=== PATIENT | female | born 1940 | race Caucasian/White ===

== ENCOUNTER 2016-07-07 09:55 | Inpatient (IN) | payer OTHER ==
[~2016-07-07] VITALS: Ht 170.2 cm; Wt 90.3 kg
--- NOTE | ~2016-07-07 | EKG ---
[place] [address] [facility] [employer] [place] [address] ELECTROCARDIOGRAM REPORT Name: SAAD RIVERA Room #: 460-P ADM IN M.R.#: [id number] Admission: 07/07/16 Attend Phys: Bennie Baca Discharge: Date of : 36 Report #: [id number] THIS REPORT FOR: //name// [facility] ED Test Date: 2016-07-07 Test Time: 10:04:00 Pat Name: SAAD RIVERA Department: Room: [facility] Gender: F Central Office Installer: LUCAS : 1940 Requested By: Libia Freeman Order Number: [id number] MD: Tony Melendez Measurements Intervals Rice Rate: 105 P: AK: QRS: 21 QRSD: 89 T: 77 QT: 365 QTc: 483 Interpretive Statements Atrial fibrillation Nonspecific ST and T-wave abnormality Borderline prolonged QT interval Compared to ECG 08/13/2013 16:40:52 Premature ventricular complexes are no longer present Electronically Signed On 07-08-2016 7:56:31 CDT by Tony Melendez [email or web address] <ELECTRONICALLY SIGNED> By: Tony Melendez MD, [facility] 07/08/16 0756 [id number] Tony Melendez MD, [facility] /EPI
--- NOTE | ~2016-07-07 | HC ---
[facility] [place] [address] CONSULTATION Name: SAAD RIVERA Room #: 460-P ADM IN M.R.#: [id number] Admission: 07/07/16 Attend Phys: Bennie Baca Discharge: Date of : 36 Report #: [id number] THIS REPORT FOR: //name// CC: Epifanio Montes MD [facility] Bennie Bishop MD DATE OF SERVICE: 07/07/2016 REFERRING PROVIDER: Bennie Baca M.D. REASON FOR CONSULTATION: Shortness of breath and wheezing. HISTORY OF PRESENT ILLNESS: Our group was asked to evaluate the patient in consultation while hospitalized at [facility]. A very pleasant 76-year-old woman without any significant past pulmonary history; although, may have a history symptomatically of mild asthma or allergic rhinitis. She had been in her usual state of health until the last several days where she had some increasing upper respiratory congestion, rhinorrhea and sneezing. Then over the last 2 days had increasing shortness of breath, cough, yellow sputum production and wheezing. No fevers, chills or sweats. Dyspnea became worse today, presented to the Emergency Department for further evaluation. The patient was noted to have significant labored breathing and mixed respiratory and metabolic acidosis, was started on BiPAP and subsequently also given systemic steroids, bronchodilators, antibiotics and transferred to critical care telemetry floor. Currently, she is having difficulty speaking in full symptoms off BiPAP. Audible wheezes are noted across the room. She notes some chest tightness but no other chest discomfort. She does have a history of atrial fibrillation, but notes no palpitations or increased lower extremity edema. She remains fully anticoagulated, on Pradaxa for her history of atrial fibrillation. In the Emergency Department, a D-dimer was normal. A CT scan of the chest was also performed which showed some minimal strand-like infiltrates in the bases, which may be consistent with either atelectasis or subtle infiltrates. The patient has no fever, chills or sweats. She notes no ill contacts at home. No recent travel. ALLERGIES: Include SULFA and CIPROFLOXACIN. PAST MEDICAL HISTORY: 1. History of paroxysmal atrial fibrillation. 2. Hypertension. 3. Hyperlipidemia. [address] [address] CONSULTATION Name: SAAD RIVERA Room #: 460-P [facility] IN ..#: [id number] Admission: 07/07/16 Attend Phys: Bennie Baca Discharge: Date of : 36 Report #: [id number] OUTPATIENT MEDICATIONS: Include: 1. Pradaxa. 2. Atenolol. 3. Diltiazem. 4. Simvastatin. 5. Lumigan eyedrops. 6. Zyrtec. SOCIAL HISTORY: The patient is a never smoker, no alcohol consumption. Lives with her independently. FAMILY HISTORY: Negative for any significant pulmonary disease. REVIEW OF SYSTEMS: CONSTITUTIONAL: Denies any fevers, chills or sweats. No change in weight or appetite or vomiting. EARS, NOSE AND THROAT: Has had some upper respiratory congestion with some clear rhinorrhea and postnasal drip symptoms. No dysphagia. CARDIOVASCULAR: Known history of atrial fibrillation. No chest pains or palpitations. GASTROINTESTINAL: No abdominal pain, nausea, vomiting, diarrhea or constipation. GENITOURINARY: No dysuria, urinary frequency or hematuria. INTEGUMENT: Denies any new rash. MUSCULOSKELETAL: Denies any significant lower extremity edema or joint pains. Rest of 10-point review of systems is negative. PHYSICAL EXAMINATION: VITAL SIGNS: Afebrile, pulse 100-110, respiratory rate 28 and blood pressure 130/77. GENERAL: This is an obese, elderly woman in moderate respiratory distress, having difficulty speaking in full sentences. HEENT: Revealed a clear oropharynx, no dental caries. Mallampati 2 airway, no thrush. NECK: Supple, no lymphadenopathy and no stridor. LUNGS: Diffuse expiratory wheezes noted throughout with diminished airflow. CARDIOVASCULAR: Heart was regular but tachycardic. No murmurs noted. ABDOMEN: Soft, flat and nontender, no masses and no hepatosplenomegaly. EXTREMITIES: Only trace edema. They are warm with 2+ pulses. LABORATORY DATA: Arterial blood gas done on BiPAP 01/18, FiO2 of 35% revealed a pH of 7.35, pCO2 of 42, pO2 of 72, bicarbonate of 23, lactate was 1.6. White blood cell count 18,000, hemoglobin 13, hematocrit 40, platelet count 220, 95% segmented neutrophils. Chemistry profile within normal limits except for an elevated creatinine of 1.4 and glucose of 169. Initial lactate was 3.3 on serum chemistry; however, was normal on arterial blood gas. Troponin is normal. [facility] [address] [place] [address] CONSULTATION Name: SAAD RIVERA Room #: 460-P [facility] IN M.R.#: [id number] Admission: 07/07/16 Attend Phys: Bennie Baca Discharge: Date of : 36 Report #: [id number] ProBNP 1632. Imaging as described in HPI. IMPRESSION: 1. Acute hypercapnic and hypoxemic respiratory failure most consistent with early pneumonia with also history of recent sinus disease, cannot rule out some underlying mild asthma that has been exacerbated as the patient states she has been off and on inhaled bronchodilators in the past; although, does not chronically use. 2. History of atrial fibrillation. 3. Pulmonary infiltrates consistent with community-acquired pneumonia. Favor continuing with Rocephin and azithromycin and following radiographs. SUGGESTIONS: 1. Antibiotics as described above. 2. Systemic steroids with taper. 3. Noninvasive positive pressure ventilation with BiPAP and follow closely. 4. Continuous oximetry monitoring. 5. Follow up radiograph in the a.m. as well as arterial blood gas. 6. Frequent bronchodilators, DuoNeb q. 4 hours. 7. Await cultures of sputum and blood. 8. Nasal swab for respiratory viral panel. 9. Urinary pneumococcal and legionella antigen tests. 10. Additional recommendations to follow. Thank you for requesting our suggestions. We will continue to follow. By: [id number] [id number] Bruce Briggs MD /nt
[2016-07-07 09:55] VITALS: BP 149/122
[~2016-07-07 09:55] MED LIST: ALEVE220 MG PO; ATENOLOL 25 MG25 M1 PO; BAYER CHEWABLE81 MG PO; CARDIZEM CD180 MG PO; LUMIGAN2.5 M1 OP; PRADAXA150 MG PO; ZOCOR20 MG PO; ZYRTEC10 MG PO
[2016-07-07] MEDS ORDERED: PRADAXA150 MG PO (09:58)
[2016-07-07 10:20] LABS: HEMATOCRIT 40.3 % (37.0-47.0); HEMOGLOBIN 13.4 gm/dL (12.0-15.0); MCH 30.1 pg (26.0-34.0); MCHC 33.2 g/dL (28.0-37.0); MCV 90.7 fL (80.0-100.0); PLATELET COUNT 220 thou/uL (150-400); RBC 4.44 mil/uL (4.20-5.00); RDW 13.8 % (10.5-14.5); WBC 18.2 thou/uL (4.0-11.0)
[2016-07-07 10:24] LABS: ANION GAP 11 mmol/L (7-16); BUN 22 mg/dL (7-18); CALCIUM 9.4 mg/dL (8.5-10.1); CHLORIDE 106 mmol/L (98-107); CO2 22 mmol/L (21-32); CREATININE 1.4 mg/dL (0.6-1.0); GLUCOSE 169 mg/dL (74-106); POTASSIUM 4.2 mmol/L (3.5-5.1); SODIUM 139 mmol/L (136-145)
[2016-07-07 10:25] LABS: MANUAL DIFF YES
[2016-07-07 10:36] LABS: NT-PRO BRAIN NAT PEPTIDE 1632 pg/mL (<300); TROPONIN-I < 0.04 ng/mL (<0.04-0.07)
[2016-07-07 10:55] LABS: ABSOLUTE NEUTROPHILS 17.3 thou/uL (1.4-8.2); ANISOCYTOSIS SLIGHT; TOTAL CELL COUNT 100
[2016-07-07 11:35] LABS: ABG SAMPLE TYPE ARTERIAL; BE(vivo) -6.2 mmol/L (-2 to +3); HCO3 20.5 mmol/L (22.0-26.0); LACTATE 1.86 mmol/L (0.5-2.0); O2(CT) 17.8 mL/dL (15.0-23.0); O2Hb 90.4 % (92.0-98.0); PCO2 45.2 mmHg (35.0-45.0); PO2 66.9 mmHg (80.0-100.0); STICK SITE L.RADIAL; pH 7.275 (7.360-7.450); sO2 90.8 % (92.0-98.0); tCO2 21.9 mmol/L (24.0-30.0)
[2016-07-07 12:33] LABS: ABG SAMPLE TYPE ARTERIAL; BE(vivo) -2.9 mmol/L (-2 to +3); HCO3 22.6 mmol/L (22.0-26.0); LACTATE 1.58 mmol/L (0.5-2.0); O2Hb 92.9 % (92.0-98.0); PCO2 42.1 mmHg (35.0-45.0); PO2 71.7 mmHg (80.0-100.0); Pressure Support 12 cm H20; STICK SITE L.RADIAL; pH 7.348 (7.360-7.450); sO2 93.7 % (92.0-98.0); tCO2 23.9 mmol/L (24.0-30.0)
[2016-07-07 12:45] VITALS: BP 135/75
[2016-07-07 13:17] VITALS: BP 130/77
[2016-07-07 15:27] VITALS: BP 114/61
[2016-07-07 19:24] VITALS: BP 112/51
[2016-07-07 23:34] VITALS: BP 114/65
[2016-07-08 04:06] VITALS: BP 105/76
[2016-07-08 07:26] VITALS: BP 112/59
[2016-07-08 07:41] LABS: ABG SAMPLE TYPE ARTERIAL; BE(vivo) -2.6 mmol/L (-2 to +3); HCO3 21.6 mmol/L (22.0-26.0); LACTATE 1.82 mmol/L (0.5-2.0); O2(CT) 16.8 mL/dL (15.0-23.0); O2Hb 94.5 % (92.0-98.0); PCO2 35.5 mmHg (35.0-45.0); PO2 74.9 mmHg (80.0-100.0); STICK SITE R.RADIAL; pH 7.402 (7.360-7.450); sO2 95.2 % (92.0-98.0); tCO2 22.7 mmol/L (24.0-30.0)
[2016-07-08 11:25] VITALS: BP 96/54
[2016-07-08 15:20] VITALS: BP 92/48
[2016-07-08 21:40] VITALS: BP 119/94
[2016-07-09 03:57] VITALS: BP 114/77
[2016-07-09 08:00] VITALS: BP 114/59
[2016-07-09 16:30] VITALS: BP 116/56
[2016-07-09 21:18] VITALS: BP 115/66
[2016-07-10 04:00] VITALS: BP 108/53
[2016-07-10 05:58] LABS: HEMATOCRIT 35.2 % (37.0-47.0); HEMOGLOBIN 11.5 gm/dL (12.0-15.0); MCH 29.7 pg (26.0-34.0); MCHC 32.6 g/dL (28.0-37.0); MCV 91.3 fL (80.0-100.0); RBC 3.86 mil/uL (4.20-5.00); RDW 14.1 % (10.5-14.5); WBC 18.3 thou/uL (4.0-11.0)
[2016-07-10 06:11] LABS: CALCIUM 8.9 mg/dL (8.5-10.1); CREATININE 1.4 mg/dL (0.6-1.0); PHOSPHORUS 4.3 mg/dL (2.5-4.9); POTASSIUM 3.7 mmol/L (3.5-5.1)
[2016-07-10 06:16] VITALS: BP 122/66
[2016-07-10 07:23] VITALS: BP 101/58
[2016-07-10] MEDS ORDERED: CEFDINIR300 MG PO (10:59)
[2016-07-10] MEDS ORDERED: TESSALON PERLE100 MG PO (11:03)
[2016-07-10 11:07] VITALS: BP 101/62
[2016-07-10 11:39] VITALS: BP 101/62
[2016-07-14 22:11] LABS: INFLUENZA B Negative (Negative); METAPNEUMOVIRUS Negative (Negative)
== END 2016-07-10 14:14 | disposition home or self-care (01) | DRG 871 ==
LOC: ER 09:55 → EROBS 12:17 → 4W 12:17 → EROBS 12:22 → 4W 13:13
PROVIDERS: Emergency Medicine; Hospitalist; Internal Medicine Pulmonary Disease
PROC: 5A09357 Assistance with Respiratory Ventilation, Less than 24 Consecutive Hours, Continuous Positive Airway Pressure (ICD-10-PCS; principal; 2016-07-07)
DX: A41.9 Sepsis, unspecified organism (principal); J18.1 Lobar pneumonia, unspecified organism; J96.01 Acute respiratory failure with hypoxia; J96.02 Acute respiratory failure with hypercapnia; I42.9 Cardiomyopathy, unspecified; E87.2 Acidosis; J32.9 Chronic sinusitis, unspecified; M19.90 Unspecified osteoarthritis, unspecified site; I48.0 Paroxysmal atrial fibrillation; E78.00 Pure hypercholesterolemia, unspecified; F03.90 Unspecified dementia, unspecified severity, without behavioral disturbance, psychotic disturbance, mood disturbance, and anxiety; J98.01 Acute bronchospasm; I10 Essential (primary) hypertension; E78.5 Hyperlipidemia, unspecified; Z79.899 Other long term (current) drug therapy; Z90.49 Acquired absence of other specified parts of digestive tract; Z87.81 Personal history of (healed) traumatic fracture; Z88.1 Allergy status to other antibiotic agents; Z88.2 Allergy status to sulfonamides
CPT/HCPCS: 10045

== ENCOUNTER → 2019-04-16 | Outpatient (CLI) | payer MEDICARE ==
[~2019-04-16] MED LIST changes: +CEFDINIR300 MG PO; +TESSALON PERLE100 MG PO
== END ==
LOC: SJCVCIMAG 09:22
DX: I08.2 Rheumatic disorders of both aortic and tricuspid valves (principal); R94.31 Abnormal electrocardiogram [ECG] [EKG]; E78.5 Hyperlipidemia, unspecified; I48.21 Permanent atrial fibrillation; I42.9 Cardiomyopathy, unspecified; I10 Essential (primary) hypertension; E78.00 Pure hypercholesterolemia, unspecified; R06.00 Dyspnea, unspecified; Z79.899 Other long term (current) drug therapy

== ENCOUNTER → 2020-04-17 | Outpatient (CLI) | payer MEDICARE | LOC: SJCVC 13:28 | PROVIDERS: ATTEND Internal Medicine Cardiovascular Disease | DX: R94.31 Abnormal electrocardiogram [ECG] [EKG] (principal); I48.21 Permanent atrial fibrillation; E78.00 Pure hypercholesterolemia, unspecified; I42.9 Cardiomyopathy, unspecified; I12.9 Hypertensive chronic kidney disease with stage 1 through stage 4 chronic kidney disease, or unspecified chronic kidney disease; N18.30 Chronic kidney disease, stage 3 unspecified; R53.83 Other fatigue; E78.5 Hyperlipidemia, unspecified; H40.9 Unspecified glaucoma; Z79.899 Other long term (current) drug therapy; Z88.2 Allergy status to sulfonamides; Z88.8 Allergy status to other drugs, medicaments and biological substances; Z72.89 Other problems related to lifestyle ==

== ENCOUNTER → 2020-12-18 | Outpatient (CLI) | payer MEDICARE | LOC: SJCVC 10:43 | PROVIDERS: ATTEND Internal Medicine Cardiovascular Disease | DX: R94.31 Abnormal electrocardiogram [ECG] [EKG] (principal); I48.21 Permanent atrial fibrillation; I10 Essential (primary) hypertension; E78.00 Pure hypercholesterolemia, unspecified; I42.9 Cardiomyopathy, unspecified; M19.90 Unspecified osteoarthritis, unspecified site; J32.9 Chronic sinusitis, unspecified; Z98.890 Other specified postprocedural states; Z88.1 Allergy status to other antibiotic agents; Z88.8 Allergy status to other drugs, medicaments and biological substances; Z88.2 Allergy status to sulfonamides; Z79.899 Other long term (current) drug therapy ==

== ENCOUNTER → 2021-01-15 | Outpatient (CLI) | payer MEDICARE | LOC: SJCVCIMAG 08:20 | PROVIDERS: ATTEND Internal Medicine Cardiovascular Disease | DX: I08.3 Combined rheumatic disorders of mitral, aortic and tricuspid valves (principal); R94.31 Abnormal electrocardiogram [ECG] [EKG]; I48.21 Permanent atrial fibrillation; I10 Essential (primary) hypertension; I42.9 Cardiomyopathy, unspecified; E78.00 Pure hypercholesterolemia, unspecified; E78.5 Hyperlipidemia, unspecified; Z79.899 Other long term (current) drug therapy; Z88.2 Allergy status to sulfonamides; Z88.8 Allergy status to other drugs, medicaments and biological substances ==